=== PATIENT | female | born 1965 ===

== ENCOUNTER → 2022-04-11 | Outpatient (CLI) | payer OTHER, MEDICARE ==
[~2022-04-11] MED LIST: BASAGLAR K100 UNIT/1 SQ; CYMBALTA 60MG60 MG PO; GLUCOPHAGE1000 MG PO; LIPITOR20 MG PO; TOPROL XL100 MG PO; VICTOZA6 MG/ML SQ
== END ==
LOC: MC.RAD 08:30
DX: N64.89 Other specified disorders of breast (principal); R92.0 Mammographic microcalcification found on diagnostic imaging of breast